=== PATIENT | female | born 1970 | race Two or more races ===

== ENCOUNTER → 2025-01-31 | Outpatient (CLI) | payer MEDICAID, SELFPAY ==
--- NOTE | 2025-01-31 10:00 | XR_ITS ---
EXAMINATION: Cervical spine, 5 views Technique: Cervical spine AP, AP odontoid, lateral, bilateral obliques, 5 views Exam date and time: January 31, 2025, 10:00 a.m. INDICATIONS: Neck pain radiating down the right arm 1 year FINDINGS: Adequate alignment cervical vertebral bodies Early disc narrowing C6-C7 Mild cervical spondylosis No neural foraminal stenosis Intact odontoid IMPRESSION: Early degenerative disc disease C6-C7
== END | disposition home or self-care (01) ==
PROVIDERS: PCP Nurse Practitioner Family; Referring Provider Nurse Practitioner Family; Visit Provider Nurse Practitioner Family
DX: M50.323 Other cervical disc degeneration at C6-C7 level (principal)
CPT/HCPCS: 72050

== ENCOUNTER → 2025-02-20 | Outpatient (CLI) | payer MEDICAID, SELFPAY ==
--- NOTE | 2025-02-20 | XR_ITS ---
Examination: Hand, right 3 views Technique: Hand AP, oblique, lateral 3 views Date and time of exam: February 20, 2025, 11:25 a.m. INDICATION: Right hand numbness and pain beginning 1 year ago. FINDINGS: Moderate juxta-articular bone demineralization No fracture Minimal osteoarthritis interphalangeal joints and first carpometacarpal joint No erosive arthritis IMPRESSION: Minimal osteoarthritis No erosive arthritis
--- NOTE | 2025-02-20 | XR_ITS ---
Examination: Wrist, right 3 views Technique: Wrist AP, oblique, lateral 3 views Date and time of exam: February 20, 2025, 11:23 a.m. INDICATIONS: Right wrist numbness and pain beginning 1 year ago. FINDINGS: Mild to moderate osteopenia Mild osteoarthritis radiocarpal and navicular trapezium and first carpal metacarpal joints. No fractures. No erosive arthritis IMPRESSION: Mild osteoarthritis
--- NOTE | 2025-02-20 | XR_ITS ---
Examination: Right elbow 3 views Technique: Elbow AP, oblique, lateral 3 views Exam date and time: February 20, 2025, 1123 hours INDICATION: Right elbow pain beginning 1 year ago. FINDINGS: No fracture or dislocation. Minimal spurring of the coronoid process of the ulna No erosive arthritis IMPRESSION: Minimal osteoarthritis.
== END | disposition home or self-care (01) ==
LOC: CDIM 10:36
PROVIDERS: PCP Nurse Practitioner Family
DX: M19.041 Primary osteoarthritis, right hand (principal); M19.031 Primary osteoarthritis, right wrist; M19.021 Primary osteoarthritis, right elbow
CPT/HCPCS: 73080; 73110; 73130